=== PATIENT | male | born 1965 | race Caucasian/White ===

== ENCOUNTER 2024-02-11 12:18 | Emergency (ER) | payer OTHER, SELFPAY ==
[2024-02-11 12:23] VITALS: BP 106/76
[2024-02-11] MEDS: TORADOL 30 MG IM (13:09)
--- NOTE | 2024-02-11 13:40 | ED.GENMED ---
History of Present Illness
General
Chief Complaint: Musculo-Skeletal Complaint
Source: patient
Exam Limitations: none
Time Seen by Provider: 02/11/24 12:39
Nursing documentation reviewed up to this point in time: agreed with
History of Present Illness
History of Present Illness:
58-year-old male with no reported past medical history presents to the ER for evaluation of right lower leg injury. Patient had his back to a forklift which was in reverse. He says that the rear tire of the forklift came in contact with right
lower calf/heel and pinned his heel to the ground. He did not fall down, forklift was quickly moved forward and released his leg. He has had pain in the right ankle and trouble bearing weight since. He does have a large abrasion in the right
lower calf/heel. He says his last tetanus was within 5 years. No other injuries.
Review of Systems
Review of Systems
All Other Systems: ROS reviewed and negative except as documented in HPI and ROS
Musculoskeletal: Reports other (Right leg injury)
Skin: Reports other (Abrasion)
Phy Exam
Physical Exam
Physical Exam:
General: Well appearing and non-toxic
HEENT: protecting airway
Neck: appears supple
CV: No evidence of cyanosis
Resp: No accessory muscle use
Abd: Non-distended
Extremities: No deformities; patient has large abrasion to the right posterior lower calf/heel approximately 5 x 2 cm with surrounding ecchymosis extending down towards the calcaneus; he has no significant swelling of the ankle itself, no tenderness
of the lateral and medial malleolus, no tenderness of the midfoot, no calcaneal tenderness but significant tenderness along the Achilles tendon with no palpable defect; he has a negative Greenberg test; he is able to bear weight and move ankles
through full plantarflexion and dorsiflexion although he has pain with extremes of dorsiflexion and plantarflexion; he is flat-footed bilaterally; he has a strong right DP and PT pulse palpable bilaterally; exam of the right knee has no effusion, no
pain on range of motion, no tenderness along the joint line or proximal fibula
Neuro: Alert
Psych: Normal affect
Skin: Intact
Scores
Heart Failure Risk
Heart Failure Risk Score: Not Applicable
Heart Score for Chest Pain Patients
STEMI patient?: Not applicable
Withdrawal Assessment of Alcohol
Withdrawal Assessment Completed?: Not applicable
Course
Orders/Labs/Results
Orders:
Orders
02/11/24 12:26
Ankle, Right 3 view CR [CR Ankle - Right Min 3 Views *] Urgent
Comment:
Reason For Exam: injury
02/11/24 13:04
Ketorolac [Toradol] 30 mg IM NOW STA
Vital Signs
Initial and Last Documented VS:
Initial Vital Signs
Temp Pulse Resp BP Pulse Ox
36.7 C 94 16 106/76 98
02/11/24 12:23 02/11/24 12:23 02/11/24 12:23 02/11/24 12:23 02/11/24 12:23
Last Documented Vital Signs
Temp Pulse Resp BP Pulse Ox
36.7 C 94 16 106/76 98
02/11/24 12:23 02/11/24 12:23 02/11/24 12:23 02/11/24 12:23 02/11/24 12:23
MDM/Problems Addressed
Differential Diagnosis Includes:
Ankle fracture, Achilles injury, contusion/abrasion
MDM/Problems Addressed:
58-year-old male presents for evaluation after right lower leg/ankle injury�forklift reversed and made contact with his Achilles tendon region and pinched his heel to the ground. Pain with weightbearing and range of motion since. Vitals and exam
as above. He has an abrasion which we cleaned and dressed after applying antibiotic ointment. X-ray reviewed by me shows no fracture or dislocation. Possible minor Achilles injury versus soft tissue contusion and abrasion. Placed in short leg
boot, given crutches to aid with ambulation. Will refer to orthopedics for follow-up. Advised regarding RICE. All questions answered.
*Radiology
Radiology exam reviewed: preliminary read by ED provider and radiology read reviewed
*Pulse Oximetry
Patient hypoxic: no
*Critical Care Note
Total Time (30-74mins, 75-104mins- exclusive of procedures): Not Applicable
Data Reviewed
Source: patient
ED Attending Note
-
Portions of this chart may have been created with voice recognition software.� Occasional wrong word or��sound alike� substitutions may have occurred due to the inherent limitations of voice recognition software.
Discharge Plan
Departure
Patient Disposition: Home (Routine Discharge)
Date of Disposition: 02/11/24
Time of Disposition: 13:00
Patient with high blood pressure during this ER visit?: No
Discharge Problem:
Abrasion of leg, right, Injury of ankle, right
Instructions: Ankle Sprain ED, Abrasions ED
Referrals:
Frank Dalal DO [Family Provider] - Call in 1-3 days for appt
Tal García DPM [Active] - Follow up in 2-3 days (Orthopedic--Foot and Ankle Physician)
Activity Restrictions/Additional Instructions:
Thank you for visiting the Emergency Department at [facility].
1. Please schedule a follow up appointment as directed. Call first thing tomorrow morning to make an appointment.
2. If indicated, please take your medications as instructed and indicated on discharge paperwork.
3. If any of your symptoms do not improve, or persist, or become more severe within 6-12 hours, please return to the emergency department for further care.
4. Please return to the emergency department if you develop a headache, neck pain/stiffness, fever greater than 100.4F, chest pain, shortness of breath, persistent nausea, vomiting, slurred speech, difficulty walking, numbness/tingling, weakness,
signs of infection or any other symptoms that are worrisome to you.
Please call [phone] if you have any questions.
Interventions
Interventions:
*Risk Screen - Suicide Last Done: 02/11/24 12:23
*Neglect/Abuse Screening Last Done: 02/11/24 12:23
*ED COVID-19 Vaccine History Last Done: 02/11/24 12:23
*Nursing Disposition Last Done: 02/11/24 13:20
ED-Musculoskeletal Assessment Last Done: 02/11/24 12:59
Discharge Date and Time
Discharge Date/Time: 02/11/24 13:20
Print Language: SINHALA
== END 2024-02-11 13:20 | disposition home or self-care (01) ==
LOC: EMR 12:18
PROVIDERS: EMERGENCY PHYSICIAN Emergency Medicine; FAMILY PHYSICIAN Family Medicine
DX: S99.911A Unspecified injury of right ankle, initial encounter (principal); S80.811A Abrasion, right lower leg, initial encounter; W24.0XXA Contact with lifting devices, not elsewhere classified, initial encounter
CPT/HCPCS: 96372; 99284; 73610